=== PATIENT | female | born 1950 | race Caucasian/White ===

== ENCOUNTER 2019-11-14 10:15 | Inpatient (IN) | payer OTHER ==
[~2019-11-14] VITALS: Ht 149.9 cm; Wt 58.1 kg
[~2019-11-14 10:15] MED LIST: CEFADROXIL500 MG PO; COZAAR100 MG PO; PERCOCET 5-3251 EACH PO; XARELTO10 MG PO
[2019-11-14] MEDS ORDERED: SYNTHROID50 MCG PO (12:00)
[2019-11-14] MEDS ORDERED: LOTREL 5-20 MG1 CAP PO (12:01)
[2019-11-14] MEDS ORDERED: ATORVASTATIN CA20 MG PO (12:01)
[2019-11-14] MEDS ORDERED: FOSAMAX70 MG PO (12:01)
[2019-11-14] MEDS ORDERED: PRILOSEC OTC20 MG PO (12:02)
[2019-11-23] MEDS ORDERED: ELIQUIS2.5 MG PO (15:40)
[2019-11-23] MEDS ORDERED: INTEGRA F CAPS1 EACH PO (15:41)
[2019-11-24] MEDS ORDERED: INTEGRA PLUS C1 EACH PO (12:33)
[2019-11-24] MEDS ORDERED: ELIQUIS2.5 MG PO (12:33)
== END 2019-11-23 20:38 | disposition home or self-care (01) | DRG 470 ==
LOC: SURH 11-21 06:12 → O/R 11-21 06:12 → SURH 11-21 10:15
PROVIDERS: ADMIT Orthopaedic Surgery; ATTEND Orthopaedic Surgery
PROC: 0MNN0ZZ Release Right Knee Bursa and Ligament, Open Approach (ICD-10-PCS; 2019-11-21)
PROC: 0SRC0J9 Replacement of Right Knee Joint with Synthetic Substitute, Cemented, Open Approach (ICD-10-PCS; principal; 2019-11-21 12:30)
DX: T84.032A Mechanical loosening of internal right knee prosthetic joint, initial encounter (principal); M17.11 Unilateral primary osteoarthritis, right knee; I10 Essential (primary) hypertension; E03.8 Other specified hypothyroidism; D64.9 Anemia, unspecified

== ENCOUNTER 2020-01-29 17:31 | Inpatient (IN) | payer OTHER ==
[~2020-01-29 17:31] MED LIST changes: +ATORVASTATIN CA20 MG PO; +ELIQUIS2.5 MG PO; +FOSAMAX70 MG PO; +INTEGRA F CAPS1 EACH PO; +INTEGRA PLUS C1 EACH PO; +LOTREL 5-20 MG1 CAP PO; +PRILOSEC OTC20 MG PO; +SYNTHROID50 MCG PO
[2020-01-31] MEDS ORDERED: NABUMETONE500 MG (07:54)
== END 2020-02-17 18:00 | disposition home or self-care (01) | DRG 857 ==
LOC: SURG 17:31
PROVIDERS: ADMIT Orthopaedic Surgery; ATTEND Orthopaedic Surgery
PROC: 30233N1 Transfusion of Nonautologous Red Blood Cells into Peripheral Vein, Percutaneous Approach (ICD-10-PCS; 2020-01-30)
PROC: 02HV33Z Insertion of Infusion Device into Superior Vena Cava, Percutaneous Approach (ICD-10-PCS; 2020-02-04)
PROC: 0SWC0JZ Revision of Synthetic Substitute in Right Knee Joint, Open Approach (ICD-10-PCS; 2020-02-07)
PROC: 0JBN0ZZ Excision of Right Lower Leg Subcutaneous Tissue and Fascia, Open Approach (ICD-10-PCS; 2020-02-07)
PROC: 3E10X8Z Irrigation of Skin and Mucous Membranes using Irrigating Substance (ICD-10-PCS; 2020-02-07)
PROC: 0SNC0ZZ Release Right Knee Joint, Open Approach (ICD-10-PCS; principal; 2020-02-07 13:00)
DX: T81.40XA Infection following a procedure, unspecified, initial encounter (principal); T84.89XA Other specified complication of internal orthopedic prosthetic devices, implants and grafts, initial encounter; Z20.828 Contact with and (suspected) exposure to other viral communicable diseases; Z96.651 Presence of right artificial knee joint; M17.11 Unilateral primary osteoarthritis, right knee; M24.561 Contracture, right knee; B96.4 Proteus (mirabilis) (morganii) as the cause of diseases classified elsewhere